=== PATIENT | male | born 1950 | race Caucasian/White ===

== ENCOUNTER → 2021-09-21 09:49 | Outpatient (REF) | payer MEDICARE, SELFPAY | LOC: ANHLAB 09:49 | PROVIDERS: PCP Internal Medicine; Visit Provider Nurse Practitioner | DX: C44.329 Squamous cell carcinoma of skin of other parts of face (principal) | CPT/HCPCS: 88305 ==

== ENCOUNTER → 2021-10-16 07:21 | Outpatient (REF) | payer MEDICARE, SELFPAY | LOC: ANHLAB 07:21 | PROVIDERS: PCP Internal Medicine; Visit Provider Nurse Practitioner | DX: C44.329 Squamous cell carcinoma of skin of other parts of face (principal) | CPT/HCPCS: 88305; 88331 ==

== ENCOUNTER 2022-09-25 11:32 | Outpatient (NON) | payer MEDICARE, SELFPAY | END 2022-09-25 11:33 | disposition home or self-care (01) | LOC: ANHLAB 09-26 11:34 | PROVIDERS: PCP Family Medicine; Visit Provider Nurse Practitioner | DX: C44.319 Basal cell carcinoma of skin of other parts of face (principal) | CPT/HCPCS: 88305 ==

== ENCOUNTER 2022-10-22 14:04 | Outpatient (NON) | payer MEDICARE, SELFPAY | END 2022-10-22 14:05 | disposition home or self-care (01) | LOC: ANHLAB 14:04 | PROVIDERS: PCP Family Medicine; Visit Provider Nurse Practitioner | DX: C44.319 Basal cell carcinoma of skin of other parts of face (principal) | CPT/HCPCS: 88305; 88331 ==